=== PATIENT | female | born 1960 ===

== ENCOUNTER 2021-11-05 09:33 | Day surgery (SDC) | payer OTHER ==
[~2021-11-05] VITALS: Ht 162.6 cm; Wt 72.6 kg
[~2021-11-05 09:33] MED LIST: GABAPENTIN100 M2 PO; LEVOTHYROXINE25 MCG PO; NABUMETONE750 MG PO; PEPCID AC10 MG PO; PRILOSEC OTC20 MG PO
== END 2021-11-05 18:25 | disposition home or self-care (01) ==
LOC: CIR.AMB 09:33
PROVIDERS: ATTEND Orthopaedic Surgery Hand Surgery
DX: S63.302A Traumatic rupture of unspecified ligament of left wrist, initial encounter (principal); Z20.822 Contact with and (suspected) exposure to COVID-19; J45.909 Unspecified asthma, uncomplicated; E03.9 Hypothyroidism, unspecified

== ENCOUNTER 2021-12-27 13:27 | Inpatient (IN) | payer OTHER | END 2022-01-06 19:19 | disposition home or self-care (01) | DRG 857 | LOC: ER 13:27 → SEC-K 19:46 → MEDJ 22:46 | PROVIDERS: ADMIT Internal Medicine | PROC: 0JBH0ZZ Excision of Left Lower Arm Subcutaneous Tissue and Fascia, Open Approach (ICD-10-PCS; principal; 2021-12-28) | DX: T81.41XA Infection following a procedure, superficial incisional surgical site, initial encounter (principal); L02.414 Cutaneous abscess of left upper limb; B95.62 Methicillin resistant Staphylococcus aureus infection as the cause of diseases classified elsewhere; E03.9 Hypothyroidism, unspecified; Z20.822 Contact with and (suspected) exposure to COVID-19; I10 Essential (primary) hypertension ==